=== PATIENT | female | born 1945 | race Caucasian/White ===

== ENCOUNTER 2016-11-08 15:35 | Emergency (ER) | payer MEDICARE ==
[2016-11-08] MEDS ORDERED: HYDROcodone/ACETAMIN 5-325 MG* 1 TAB PO ONE ×2 (16:10→17:46)
--- NOTE | 2016-11-08 16:51 | RAD ---
HISTORY: Trauma, low back pain COMPARISONS: None TECHNIQUE: Multiple contiguous axial CT scans were obtained of the lumbar spine without intravenous contrast, with coronal and sagittal multiplanar reformations. FINDINGS: SPINAL CANAL: Evaluation of the central canal is limited on CT technique; however, there is no obvious canalicular mass or epidural hemorrhage. ALIGNMENT: The alignment is normal. VERTEBRAL BODIES: There is diffuse osteopenia. There is multilevel bridging anterolateral marginal osteophyte formation. The vertebral bodies are preserved in height. JOINTS: There is diffuse facet osteoarthritic change most pronounced at L4-L5 and L5-S1 MUSCULATURE: Unremarkable INTERVERTEBRAL DISCS: There is diffuse loss of intervertebral disc height throughout the spine. AXIAL IMAGES: T11-T12: There is no osseous neural foraminal narrowing or central canal stenosis. T12-L1: There is no osseous neural foraminal narrowing or central canal stenosis. L1-L2: There is mild disc bulge with marginal osteophyte formation at the neural foramina bilaterally. There is moderate bilateral neural foraminal narrowing. There is a probable right lateral recess inferior disc extrusion measuring 0.4 cm in depth. There is mild narrowing of central canal. L2-L3: There is a broad-based disc bulge. There is bilateral facet hypertrophy. There is mild bilateral neural foraminal narrowing. There is mild narrowing of central canal. L3-L4: There is a broad-based disc bulge with ligamentous and facet hypertrophy. There is marginal osteophyte formation at the neural foramina bilaterally. There is moderate bilateral neural foraminal narrowing. There is moderate to severe narrowing of the central canal. L4-L5: There is a broad-based disc bulge with ligamentous and facet hypertrophy. There is marginal osteophyte formation at the neural foramina bilaterally. There is severe left and moderate right neural foraminal narrowing. There is severe narrowing of the central canal. L5-S1: There is bilateral facet hypertrophy. There is marginal osteophyte formation at the neural foramina bilaterally. There is mild bilateral neural foraminal narrowing. There is no significant central canal stenosis. SOFT TISSUES: There is atherosclerosis of the abdominal aorta. There is diverticulosis of the colon. OTHER: None IMPRESSION: 1. OSTEOPENIA. 2. DEGENERATIVE DISC DISEASE AND OSTEOARTHRITIS. 3. THERE IS A PROBABLE RIGHT-SIDED INFERIOR DISC EXTRUSION AT L1-L2. 4. THERE IS SEVERE NARROWING OF THE CENTRAL CANAL AT L4-L5 WITH MODERATE TO SEVERE NARROWING AT L3-L4 AND MILD NARROWING AT L2-L3 AND L1-L2. 5. THERE IS MULTILEVEL NEURAL FORAMINAL NARROWING DESCRIBED ABOVE. 6. ATHEROSCLEROSIS. 7. DIVERTICULOSIS.
[2016-11-08 17:45] VITALS: BP 139/90
--- NOTE | 2016-11-08 21:49 | ED ---
Chandler Mcdermott Matthew, scribed for Kunal Prado MD on 11/08/16 at 1559 . Back Pain - HPI Summary HPI Summary: A 71 y/o female presents to the ED with gradually worsening, constant lower back pain since 2 months ago. The pain is rated 11/10 and radiates into her legs. Associated symptoms include difficulty ambulating, numbness/tingling in the LE, and unsteady gait from the pain. She denies urinary symptoms and irregular bowel movements. Two and half months ago the patient fell face forward with no immediate pain or injury. Two weeks later, the patient began having the lower back pain and a shooting pain down both of her legs to the knees. The patient has fallen twice since then. She has a Hx of chronic lower back pain, which she states has been worsening. - History of Current Complaint Chief Complaint: EDBackInjuryPain Stated Complaint: PAIN LOWER BACK AND LEGS Time Seen by Provider: 11/08/16 15:50 Hx Obtained From: Patient Onset/Duration: Gradual Onset, Lasting Weeks, Still Present Onset/Duration: Started Weeks Ago, Traumatic, Still Present Timing: Constant Back Pain Location: Is Discrete @ - lower back pain Severity Initially: Moderate Severity Currently: Moderate Pain Intensity: 11 Pain Scale Used: 0-10 Numeric Aggravating Symptom(s): Movement, Walking Alleviating Symptom(s): Nothing Associated Signs And Symptoms: Positive: Numbness, Tingling - LE. Negative: Abdominal Pain, Bladder Incontinence, Bowel Incontinence - Allergies/Home Medications Allergies/Adverse Reactions: Allergies Allergy/AdvReac Type Severity Reaction Status Date / Time Codeine Allergy Itching Verified 11/08/16 16:04 [facility] Allergy See Comment Verified 11/08/16 16:04 PMH/Surg Hx/FS Hx/Imm Hx Cardiovascular History: Reports: Hx Hypertension Respiratory History: Reports: Hx Chronic Obstructive Pulmonary Disease (COPD) - Cancer History Cancer Type, Location and Year: Basal Cell - Surgical History Surgery Procedure, Year, and Place: [place] Tumor gioma, 2008 Infectious Disease History: Denies: Hx Clostridium Difficile, Hx Hepatitis, Hx Human Immunodeficiency Virus (HIV), Hx of Known/Suspected MRSA, Hx Shingles, Hx Tuberculosis, Hx Known/ Suspected VRE, Hx Known/Suspected VRSA, History Other Infectious Disease, Traveled Outside the [place] in Last 30 Days - Family History Known Family History: Positive: Hypertension - Social History Alcohol Use: None Substance Use Type: Reports: None Smoking Status (MU): Heavy Every Day Tobacco Smoker Type: Cigarettes Amount Used/How Often: 1 PPD Length of Time of Smoking/Using Tobacco: 56 Years Have You Smoked in the Last Year: Yes Review of Systems Constitutional: Negative Eyes: Negative ENT: Negative Cardiovascular: Negative Respiratory: Negative Gastrointestinal: Negative Genitourinary: Negative Positive: no symptoms reported Positive: Myalgia - lower back pain Skin: Negative Neurological: Other - Difficulty ambulating and unsteady gait from pain Positive: Numbness - Bilateral LE Psychological: Normal All Other Systems Reviewed And Are Negative: Yes Physical Exam Triage Information Reviewed: Yes Vital Signs On Initial Exam: Initial Vitals Temp Pulse Resp BP Pulse Ox 98.4 F 98 16 210/68 98 11/08/16 15:41 11/08/16 15:41 11/08/16 15:41 11/08/16 15:41 11/08/16 15:41 Vital Signs Reviewed: Yes Appearance: Positive: Well-Appearing, No Pain Distress Skin: Positive: Warm, Skin Color Reflects Adequate Perfusion, Dry Head/Face: Positive: Normal Head/Face Inspection Eyes: Positive: Normal ENT: Positive: Normal ENT inspection Neck: Positive: Supple, Nontender Respiratory/Lung Sounds: Positive: Clear to Auscultation, Breath Sounds Present Cardiovascular: Positive: RRR Abdomen Description: Positive: Nontender, Soft Bowel Sounds: Positive: Present Musculoskeletal: Positive: Other - Negative straight leg raise; hyper reflexive in her bilateral knees Neurological: Positive: Normal, Sensory/Motor Intact, Alert, Oriented to Person Place, Time Psychiatric: Positive: Normal, Affect/Mood Appropriate Diagnostics - Vital Signs Vital Signs Temp Pulse Resp BP Pulse Ox 11/08/16 15:41 98.4 F 98 16 210/68 98 - Laboratory Lab Statement: Any lab studies that have been ordered have been reviewed, and results considered in the medical decision making process. - CT Lumbar Spine CT CT Interpretation: Positive (See Comments) - IMPRESSION: 1. OSTEOPENIA. 2. DEGENERATIVE DISC DISEASE AND OSTEOARTHRITIS. 3. THERE IS A PROBABLE RIGHT- SIDED INFERIOR DISC EXTRUSION AT L1-L2. 4. THERE IS SEVERE NARROWING OF THE CENTRAL CANAL AT L4-L5 WITH MODERATE TO SEVERE NARROWING AT L3-L4 AND MILD NARROWING AT L2-L3 AND L1-L2. 5. THERE IS MULTILEVEL NEURAL FORAMINAL NARROWING DESCRIBED ABOVE. 6. ATHEROSCLEROSIS. 7. DIVERTICULOSIS. CT Interpretation Completed By: Radiologist Back Pain Course/Dx - Course Assessment/Plan: A 71 y/o female presents to the ED with gradually worsening, constant lower back pain. Lumbar Spine CT shows there is severe narrowing of the central canal at l4-l5 with moderate to severe narrowing at l3-l4 and mild narrowing at l2-l3 and l1-l2. She improved significantly with one PO dose of Tatamy here and will be discharged home on Tatamy and follow-up with her PCP. - Diagnoses Provider Diagnoses: LUMBAR SPINAL STENOSIS Discharge - Discharge Plan Condition: Stable Disposition: HOME Prescriptions: HYDROcodone/ACETAMIN 5-325 MG* [Tatamy 5-325 TAB*] 1 tab PO Q6H PRN #20 tab MDD 4 PRN Reason: Pain Patient Education Materials: Hydrocodone/Acetaminophen (By mouth), Lumbar Spinal Stenosis (ED) Referrals: Juancho Gauthier MD [Primary Care Provider] - 2 Days Additional Instructions: Please follow-up with your primary care physician in two days. The documentation as recorded by the Chandler paez Matthew accurately reflects the service I personally performed and the decisions made by me, Kunal Prado MD.
== END 2016-11-08 18:20 | disposition home or self-care (01) ==
LOC: ED 15:35
DX: M48.06 Spinal stenosis, lumbar region (principal); I10 Essential (primary) hypertension; J44.9 Chronic obstructive pulmonary disease, unspecified; Z88.5 Allergy status to narcotic agent; F17.210 Nicotine dependence, cigarettes, uncomplicated
CPT/HCPCS: 72131

== ENCOUNTER 2016-12-11 12:59 | Emergency (ER) | payer MEDICARE ==
[2016-12-11 13:18] VITALS: BP 151/64
[2016-12-11] MEDS ORDERED: Albuterol/Ipratropium NEB.SOL* Albuterol 2.5 MG/Ipratropium 0.5 MG 3 ML INH ONE (13:26)
[2016-12-11] MEDS ORDERED: Acetaminophen TAB* 325 MG PO ONE (13:28)
--- NOTE | 2016-12-11 13:29 | UC ---
Throat Pain/Nasal [place] HPI - HPI Summary HPI Summary: here with daughter patient complaint of nasal congestion and cough that started 12/08/16 cough has worsened and she started to hear wheezing in her chest since 12/09/16 yesterday started to feel that is harder to breath intermittent headache for the last 2 days slight nausea and dizziness intermittent for the last day newly dx with COPD but doesn't have albuterol inhaler denies fever and chills denies chest pain , diaphoresis, arm pain - History of Current Complaint Chief Complaint: UCRespiratory Stated Complaint: CONGESTION Time Seen by Provider: 12/11/16 13:22 Hx Obtained From: Patient, Family/Classified Copy Control Clerk - Allergies/Home Medications Allergies/Adverse Reactions: Allergies Allergy/AdvReac Type Severity Reaction Status Date / Time Codeine Allergy Itching Verified 12/11/16 13:07 Levetiracetam [From [facility]] Allergy See Comment Verified 12/11/16 13:07 ADHESIVE BANDAIDS Allergy Intermediate Rash Uncoded 12/11/16 13:07 Home Medications: Home Medications Aspirin [Aspirin Adult Low Strengt] 162 mg PO DAILY 12/11/16 [History Confirmed 12/11/16] oxyCODONE/Acetamin 5/325 MG* [Percocet 5/325 TAB*] 1 tab PO Q6H PRN 12/11/16 [ History Confirmed 12/11/16] PMH/Surg Hx/FS Hx/Imm Hx Previously Healthy: No - URI Cardiovascular History Of: Reports: Hypertension Respiratory History Of: Reports: COPD - Surgical History Surgical History: Yes Surgery Procedure, Year, and Place: [place] Tumor Humangioma, 2008. LEFT BREAST BX- NOV 26, 2016. NERVE BLOCK BACK PAIN - Family History Known Family History: Positive: Hypertension Negative: Cardiac Disease, Diabetes - Social History Occupation: Retired Lives: With Family Alcohol Use: None Substance Use Type: None Smoking Status (MU): Heavy Every Day Tobacco Smoker Type: Cigarettes Amount Used/How Often: 1/2 PPD Length of Time of Smoking/Using Tobacco: 56 Years Have You Smoked in the Last Year: Yes Household Exposure Type: Cigarettes Cessation Counseling: Patient Advised to Stop - Immunization History Most Recent Influenza Vaccination: JUL 2016 Review of Systems Constitutional: Chills, Fatigue Skin: Negative Eyes: Negative ENT: Sore Throat, Nasal Discharge Respiratory: Cough Cardiovascular: Negative Gastrointestinal: Negative Genitourinary: Negative Motor: Negative Neurovascular: Negative Musculoskeletal: Negative Neurological: Negative Psychological: Negative All Other Systems Reviewed And Are Negative: Yes Physical Exam Triage Information Reviewed: Yes Appearance: No Pain Distress, Well-Nourished Vital Signs: Initial Vital Signs Temp 98.3 F 12/11/16 13:10 Pulse 93 12/11/16 13:10 Resp 24 12/11/16 13:10 BP 151/64 12/11/16 13:10 Pulse Ox 95 12/11/16 13:10 Vital Signs Reviewed: Yes Eyes: Positive: Conjunctiva Clear ENT: Positive: Pharyngeal erythema, Nasal congestion, TMs normal. Negative: Tonsillar swelling, Tonsillar exudate Neck: Positive: No Lymphadenopathy Respiratory: Positive: Wheezing - limited air movement throughout all lung [place] Cardiovascular: Positive: RRR, No Murmur, Pulses Normal Abdomen Description: Positive: Nontender, No Organomegaly, Soft Bowel Sounds: Positive: Present Musculoskeletal: Positive: No Edema Neurological: Positive: Alert Psychological Exam: Normal Skin Exam: Normal Re-Evaluation - Re-Evaluation First Eval Change: Improved - more air movement throughout, slightly less wheezing Throat Pain/Nasal Course/Dx - Course Assessment/Plan: exam completed. newly dx with COPD. exacerbation following viral illness. duoneb treatment with excellent effect- more air movement and less wheezing. EKG -NSR no acute changes or ectopy, chest x-ray COPD negative for pneumonia - Differential Dx/Diagnosis Differential Diagnosis/HQI/PQRI: Pharyngitis, URI, Other - COPD excerbation, AK , CHF Provider Diagnoses: COPD excerbation Discharge - Discharge Plan Condition: Stable Disposition: HOME Prescriptions: Albuterol HFA INHALER* [Ventolin HFA Inhaler*] 2 puff INH Q4H PRN #1 mdi PRN Reason: Wheezing Clarithromycin TAB* [Biaxin TAB*] 500 mg PO BID #20 tab Spacer/Aerosol-Holding Chamber [Aerochamber Mv] 1 mis XX Q4HR #1 mis predniSONE TAB* [Deltasone TAB*] 50 mg PO DAILY #5 tab Patient Education Materials: COPD (Chronic Obstructive Pulmonary Disease) (ED) Referrals: Juancho Gauthier MD [Primary Care Provider] - Additional Instructions: Please take antibiotic and prednisone as directed Use your albuterol inhaler every 4-6 hours when needed for wheezing, shortness of breath or uncontrolled coughing. Increase fluids and rest Take acetaminophen or ibuprofen for fever or pain Please review your discharge instructions. If your symptoms do not improve please call your primary care provider or return to urgent care.
[2016-12-11] MEDS ORDERED: methylPREDNISolone ACETATE 40* 40 MG/ML 1 ML VIAL IM ONE (13:40)
[2016-12-11] MEDS ORDERED: methylPREDNISolone 125 MG* 2 ML VIAL IM ONE (14:04)
--- NOTE | 2016-12-11 14:16 | RAD ---
HISTORY: Shortness of breath COMPARISONS: None VIEWS: 2: Frontal dual-energy and lateral views of the chest. FINDINGS: CARDIOMEDIASTINAL SILHOUETTE: The cardiomediastinal silhouette is normal. LOIS: The lois are normal. PLEURA: The costophrenic angles are sharp. No pleural abnormalities are noted. LUNG PARENCHYMA: The lungs are clear. ABDOMEN: The upper abdomen is clear. There is no subphrenic gas. BONES AND SOFT TISSUES: Degenerative changes are noted along the spine. OTHER: None. IMPRESSION: HYPERINFLATION, CONSISTENT WITH COPD. NO ACTIVE CARDIOPULMONARY DISEASE.
[2016-12-11] MEDS ORDERED: Atenolol TAB* 25 MG PO SCH (21:00)
== END 2016-12-11 14:40 | disposition home or self-care (01) ==
LOC: UCCORT 12:59
DX: J44.1 Chronic obstructive pulmonary disease with (acute) exacerbation (principal); F17.210 Nicotine dependence, cigarettes, uncomplicated; Z79.82 Long term (current) use of aspirin; Z88.5 Allergy status to narcotic agent; Z88.8 Allergy status to other drugs, medicaments and biological substances
CPT/HCPCS: 71020; 93005; 96372; 99212; A9270-GY; G0463; J2930

== ENCOUNTER 2018-04-02 13:09 | Emergency (ER) | payer MEDICARE ==
--- NOTE | 2018-04-02 13:45 | UC ---
Respiratory Complaint HPI - HPI Summary HPI Summary: 72 year old female with COPD present with cough . states nausea, productive cough, diarrhea x 5 days. Also states some SOB of at times, history of COPD and increased wheeze and productive cough and quit smoking 5 days ago . no CP. [ End ] - History of Current Complaint Chief Complaint: UCRespiratory Stated Complaint: TROUBLE BREATHING Time Seen by Provider: 04/02/18 13:40 Hx Obtained From: Patient Onset/Duration: Gradual Onset Timing: Constant Severity Initially: Mild Severity Currently: Moderate Pain Intensity: 0 Character: Cough: Productive Associated Signs And Symptoms: Positive: Wheezing, URI, Nasal Congestion - Risk Factors Tuberculosis Risk Factors: Smoking - Allergies/Home Medications Allergies/Adverse Reactions: Allergies Allergy/AdvReac Type Severity Reaction Status Date / Time levetiracetam [From [facility]] Allergy See Comment Verified 04/02/18 13:14 ADHESIVE BANDAIDS Allergy Intermediate Rash Uncoded 12/11/16 13:07 Home Medications: Home Medications Metoprolol Tartrate TAB* [Lopressor TAB*] 25 mg PO DAILY 04/02/18 [History Confirmed 04/02/18] PMH/Surg Hx/FS Hx/Imm Hx Previously Healthy: Yes Endocrine History: Dyslipidemia Cardiovascular History: Hypertension Respiratory History: COPD - Surgical History Surgical History: Yes Surgery Procedure, Year, and Place: [place] Tumor Humangioma, 2009. LEFT BREAST BX- NOV 26, 2016. NERVE BLOCK BACK PAIN - Family History Known Family History: Positive: Hypertension Negative: Cardiac Disease, Diabetes - Social History Occupation: Retired Alcohol Use: None Substance Use Type: None Smoking Status (MU): Heavy Every Day Tobacco Smoker Type: Cigarettes Amount Used/How Often: 1/2 PPD Length of Time of Smoking/Using Tobacco: 56 Years Have You Smoked in the Last Year: Yes Household Exposure Type: Cigarettes Cessation Counseling: Patient Advised to Stop - per pt quit 5 days ago - Immunization History Most Recent Influenza Vaccination: JUL 2016 Review of Systems Constitutional: Fever, Fatigue ENT: Nasal Discharge, Sinus Congestion, Sinus Pain/Tenderness Respiratory: Shortness Of Breath, Cough Is Patient Immunocompromised?: No All Other Systems Reviewed And Are Negative: Yes Physical Exam Triage Information Reviewed: Yes Appearance: Well-Appearing, No Pain Distress, Well-Nourished Vital Signs: Initial Vital Signs Temp 98.8 F 04/02/18 13:12 Pulse 115 04/02/18 13:12 Resp 24 04/02/18 13:12 BP 134/64 04/02/18 13:12 Pulse Ox 95 04/02/18 13:12 Vital Signs Reviewed: Yes Eye Exam: Normal ENT Exam: Normal Dental Exam: Normal Neck exam: Normal Neck: Positive: 1 Respiratory Exam: Normal Respiratory: Positive: Decreased breath sounds - RLL, Wheezing - Right lung Cardiovascular Exam: Normal Musculoskeletal Exam: Normal Neurological Exam: Normal Psychological Exam: Normal Skin Exam: Normal UC Diagnostic Evaluation - Laboratory O2 Sat by Pulse Oximetry: 95 Respiratory Course/Dx - Course Course Of Treatment: CXR read by rads show no acute concerns. Neb helped pt she stated. Oxygen 93-95% -- treat for COPD exac and if Sx worsen then to go to ED - Differential Dx/Diagnosis Differential Diagnosis/HQI/PQRI: Bronchitis, Exacerbation Of COPD, Lower Resp Infection, Sinusitis Provider Diagnoses: COPD exac Discharge - Sign-Out/Discharge Documenting (check all that apply): Discharge/Admit/Transfer - Discharge Plan Condition: Good Disposition: HOME Prescriptions: Doxycycline Hyclate 100 mg PO BID #20 tablet methylPREDNISolone [Medrol Dosepak 4 MG*] 0 mg PO .SEE EVA INSTRUCTION #1 tab Patient Education Materials: COPD (Chronic Obstructive Pulmonary Disease) (ED) Referrals: Jenn Ruff MD [Medical Doctor] - 3 Days Additional Instructions: With your cough and history of COPD we are treating you for COPD exacerbation. Please follow up with your PCP for this in the future - Billing Disposition and Condition Condition: GOOD Disposition: HOME
[2018-04-02] MEDS ORDERED: Albuterol/Ipratropium NEB.SOL* Albuterol 2.5 MG/Ipratropium 0.5 MG 3 ML INH ONE (13:50)
--- NOTE | 2018-04-02 14:12 | RAD ---
INDICATION: Cough COMPARISON: September 14, 2017 TECHNIQUE: PA and lateral dual-energy views were obtained. FINDINGS: Bones/Soft Tissues: There are no acute bony findings. Cardiomediastinal: The cardiomediastinal silhouette is normal. Lungs: There are no infiltrates. Pleura: There are no pleural effusions. Other: None IMPRESSION: NO ACTIVE DISEASE.
[2018-04-02 14:31] VITALS: BP 127/53
== END 2018-04-02 14:51 | disposition home or self-care (01) ==
LOC: UCCORT 13:09
DX: J44.1 Chronic obstructive pulmonary disease with (acute) exacerbation (principal); F17.210 Nicotine dependence, cigarettes, uncomplicated; Z88.8 Allergy status to other drugs, medicaments and biological substances
CPT/HCPCS: 71046; 99212; A9270-GY; G0463

== ENCOUNTER 2018-05-14 08:20 | Emergency (ER) | payer MEDICARE ==
[2018-05-14 08:40] VITALS: BP 163/80
--- NOTE | 2018-05-14 08:44 | UC ---
General HPI - HPI Summary HPI Summary: Pleasant 72 yo lady, c/o lower abd pain, bloating, nausea, vomitting and diarrhea on/off x approx 3 weeks. No melena / brbpr. Denies urinary sx. No recent cough / uri (recently quit smoking in March 2018). A couple nights ago pain woke her up in the middle of the night, better now (waxes and wanes) but does not completely resolve. No recent sx, although hx gbsx, appx, btl. No direct pain pain, does have hx back sx, not recent. - History of Current Complaint Chief Complaint: UCGI Stated Complaint: NAUSEA/DIARRHEA Time Seen by Provider: 05/14/18 08:43 Hx Obtained From: Patient Onset/Duration: Lasting Days Pain Intensity: 6 - Allergy/Home Medications Allergies/Adverse Reactions: Allergies Allergy/AdvReac Type Severity Reaction Status Date / Time levetiracetam [From [facility]] Allergy See Comment Verified 05/14/18 08:30 ADHESIVE BANDAIDS Allergy Intermediate Rash Uncoded 05/14/18 08:30 PMH/Surg Hx/FS Hx/Imm Hx Previously Healthy: Yes - Surgical History Surgical History: Yes Surgery Procedure, Year, and Place: [place] Tumor Humangioma, 2009. LEFT BREAST BX- NOV 26, 2016. NERVE BLOCK BACK PAIN - Family History Known Family History: Positive: Hypertension Negative: Cardiac Disease, Diabetes - Social History Alcohol Use: None Substance Use Type: None, Other - quit tobacco smoke 03/2018 Smoking Status (MU): Former Smoker Type: Cigarettes Amount Used/How Often: 1/2 PPD Length of Time of Smoking/Using Tobacco: 56 Years Have You Smoked in the Last Year: Yes When Did the Patient Quit Smoking/Using Tobacco: 03/02/18 Household Exposure Type: Cigarettes - Immunization History Most Recent Influenza Vaccination: JUL 2016 Review of Systems Constitutional: Fatigue Skin: Negative Eyes: Negative ENT: Negative Respiratory: Negative Cardiovascular: Negative Gastrointestinal: Abdominal Pain, Vomiting, Diarrhea Genitourinary: Negative Motor: Negative Neurovascular: Negative Musculoskeletal: Negative Neurological: Negative Psychological: Negative Is Patient Immunocompromised?: No All Other Systems Reviewed And Are Negative: Yes Physical Exam - Summary Physical Exam Summary: BP noted Triage Information Reviewed: Yes Appearance: Well-Nourished - sitting up, looks uncomfortable but NAD. Nontoxic appearance. Vital Signs: Initial Vital Signs Temp 97.5 F 05/14/18 08:31 Pulse 85 05/14/18 08:31 Resp 16 05/14/18 08:31 BP 163/80 05/14/18 08:31 Pulse Ox 98 05/14/18 08:31 Eye Exam: Normal ENT Exam: Normal Neck exam: Normal Neck: Positive: Supple Respiratory: Positive: Chest non-tender, Lungs clear, Normal breath sounds, No respiratory distress, No accessory muscle use Cardiovascular: Positive: RRR, No Murmur, Pulses Normal, Brisk Capillary Refill Abdominal Exam: Other - + BS, soft. Tender LLQ. No cvat. Musculoskeletal Exam: Normal - gait steady Neurological Exam: Normal - grossly nonfocal Psychological Exam: Normal - conversing easily and appropriately Skin Exam: Normal - no visible or reported rash Course/Dx - Course Course Of Treatment: Recommend transfer to the ED for further evaluation and treatment. Ms. Daigle carefully considered this, agrees to go to the ED, she is calling her daughter (her ride), and will let us know if [facility] [place] or [place] ED. . Reviewed urine dip, nonspecific unremarkable. Questions as posed answered to the best of my ability. - Differential Dx - Multi-Symptom Provider Diagnoses: Acute abdominal pain Discharge - Sign-Out/Discharge Documenting (check all that apply): Patient Departure - Discharge Plan Condition: Guarded Disposition: HOME-RECOMMEND TO ED Patient Education Materials: Acute Abdominal Pain (ED) Referrals: Ganesh Choi DO [Primary Care Provider] - Additional Instructions: BP 163/80 today - elevated, please have this rechecked by your doctor in the next 2 weeks, or sooner. Go directly to the Emergency Department. Call 911 if problems en route. - Billing Disposition and Condition Condition: GUARDED Disposition: Home-Recommend to ED
== END 2018-05-14 09:11 | disposition home health service (06) ==
LOC: UCCORT 08:20
DX: R10.32 Left lower quadrant pain (principal); Z88.8 Allergy status to other drugs, medicaments and biological substances; Z87.891 Personal history of nicotine dependence
CPT/HCPCS: 81003; 99212; G0463

== ENCOUNTER 2018-05-14 10:38 | Emergency (ER) | payer MEDICARE ==
--- NOTE | 2018-05-14 11:15 | ED ---
Abdominal Pain/Female - HPI Summary HPI Summary: Patient is a 72-year-old female who presents emergency department for diffuse abdominal pain 4 weeks. Patient presents today because pain has become more frequent. She describes pain as being to her lower abdomen and states she's been feeling more loaded. Describes pain as a pressure sensation. Associated symptoms of nausea, occasional vomiting and diarrhea. Denies urinary symptoms, fever, chills, chest pain, shortness of breath, leg edema. Past medical history of brain tumor, COPD, HTN. Last colonoscopy was about 10 years ago. Symptoms are moderate in severity. No current modifying. History of cholecystectomy, appendectomy, hysterectomy. - History of Current Complaint Chief Complaint: EDAbdPain Stated Complaint: ABD PAIN-SENT FROM [facility] Time Seen by Provider: 05/14/18 10:56 Hx Obtained From: Patient, Family/Timber Hewer Pain Intensity: 6 Allergies/Adverse Reactions: Allergies Allergy/AdvReac Type Severity Reaction Status Date / Time levetiracetam [From [facility]] Allergy See Comment Verified 05/14/18 10:48 ADHESIVE BANDAIDS Allergy Intermediate Rash Uncoded 05/14/18 10:48 PMH/Surg Hx/FS Hx/Imm Hx Previously Healthy: Yes Cardiovascular History: Reports: Hx Hypertension Respiratory History: Reports: Hx Chronic Obstructive Pulmonary Disease (COPD) - Cancer History Cancer Type, Location and Year: Basal Cell - Surgical History Surgery Procedure, Year, and Place: [place] Tumor Humangioma, 2009. LEFT BREAST BX- NOV 26, 2016. NERVE BLOCK BACK PAIN Infectious Disease History: No Infectious Disease History: Denies: Hx Clostridium Difficile, Hx Hepatitis, Hx Human Immunodeficiency Virus (HIV), Hx of Known/Suspected MRSA, Hx Shingles, Hx Tuberculosis, Hx Known/ Suspected VRE, Hx Known/Suspected VRSA, History Other Infectious Disease, Traveled Outside the [place] in Last 30 Days - Family History Known Family History: Positive: Hypertension Negative: Cardiac Disease, Diabetes - Social History Occupation: Retired Lives: Alone Alcohol Use: Occasionally Substance Use Type: Reports: None Smoking Status (MU): Former Smoker Type: Cigarettes Amount Used/How Often: 1/2 PPD Length of Time of Smoking/Using Tobacco: 56 Years Have You Smoked in the Last Year: Yes Review of Systems Constitutional: Negative Negative: Fever, Chills Eyes: Negative ENT: Negative Cardiovascular: Negative Negative: Palpitations, Chest Pain Respiratory: Negative Negative: Shortness Of Breath, Cough Positive: Abdominal Pain, Vomiting, Diarrhea, Nausea Genitourinary: Negative Neurological: Negative All Other Systems Reviewed And Are Negative: Yes Physical Exam Triage Information Reviewed: Yes Vital Signs On Initial Exam: Initial Vitals Temp Pulse Resp BP Pulse Ox 96.8 F 93 16 168/72 98 05/14/18 10:42 05/14/18 10:42 05/14/18 10:42 05/14/18 10:42 05/14/18 10:42 Vital Signs Reviewed: Yes Appearance: Positive: Well-Appearing - Patient sitting up in bed in no acute distress. Pleasant. Daughter present. Skin: Positive: Warm, Dry Head/Face: Positive: Normal Head/Face Inspection Eyes: Positive: Normal Neck: Positive: Supple Respiratory/Lung Sounds: Positive: Clear to Auscultation, Breath Sounds Present Cardiovascular: Positive: Normal, RRR Abdomen Description: Positive: Other: - Mildly distended. Abdomen is diffusely tender on light palpation. No rebound tenderness or guarding. No rigidity. No CVA tenderness bilaterally. Neurological: Positive: Normal, CN Intact II-III Psychiatric: Positive: Affect/Mood Appropriate Diagnostics - Vital Signs Vital Signs Temp Pulse Resp BP Pulse Ox 05/14/18 11:00 101 98 05/14/18 10:59 102 182/91 97 05/14/18 10:58 104 97 05/14/18 10:42 96.8 F 93 16 168/72 98 - Laboratory Result Diagrams: 05/14/18 11:25 05/14/18 11:25 Lab Statement: Any lab studies that have been ordered have been reviewed, and results considered in the medical decision making process. Abdominal Pain Fem Course/Dx - Course Course Of Treatment: Presenting for ongoing worsening diffuse abdominal pain. Will obtain labs and CT scan further evaluation. Patient was seen at urgent care just prior to arrival and had a negative urinalysis. Patient's pain is currently minimal and she declines pain medication or antiemetics at this time. Labs are unremarkable. CT scan shows increased stool without acute findings, reading per radiology. On re-exam pt. is resting comfortably. Results discussed with pt. and family. Advised pt. she is going to need to f.u with her PCP closely for further testing and possible referral for colonoscopy. Recommend miralax for constipation. To return to ER if sxs change or worsen. Pt. understands and agrees with plan. - Diagnoses Differential Diagnosis: Positive: Bowel Obstruction, Constipation, Diverticulitis, Irritable Bowel Syndrome, Pancreatitis, Renal Colic, Urinary Tract Infection Provider Diagnoses: Constipation, Abdominal pain, Bloating Discharge - Sign-Out/Discharge Documenting (check all that apply): Patient Departure - Discharge Plan Condition: Good Disposition: HOME Patient Education Materials: Gas and Bloating (ED), Abdominal Pain (ED) Referrals: Ganesh Choi DO [Primary Care Provider] - Additional Instructions: Call your PCP today to schedule a close follow up appointment for further testing and evaluation of your abdominal pain Recommending taking an over the counter stool softener or laxative such as MiraLAX Increase fluids and fiber in diet Return to ER for increased pain, fever, vomiting, or if concerned - Billing Disposition and Condition Condition: GOOD Disposition: Home
[2018-05-14 11:44] LABS: ABS Basophils 0.1 10^3/ul (0-0.2); ABS Eosinophils 0 10^3/ul (0-0.6); ABS Lymphocytes 2.7 10^3/ul (1.0-4.8); ABS Monocytes 0.7 10^3/ul (0-0.8); ABS Neutrophils 5.3 10^3/ul (1.5-7.7); ABS Nucleated RBC 0 10^3/ul; Eosinophil % 0.5 % (0-6); Hematocrit 39 % (35-47); Hemoglobin 12.9 g/dl (12.0-16.0); Lymphocyte % 30.9 % (25-47); Mean Corpuscular HGB Conc 33 g/dl (31-36); Mean Corpuscular Hemoglobin 31 pg (27-31); Mean Corpuscular Volume 93 fL (80-97); Mean Platelet Volume 8.8 um3 (7.4-10.4); Nucleated Red Blood Cells % 0; Platelet Count 262 10^3/ul (150-450); Red Blood Count 4.14 10^6/ul (4.00-5.40); Red Cell Distribution Width 15 % (10.5-15); White Blood Count 8.9 10^3/ul (3.5-10.8)
[2018-05-14 12:06] LABS: EGFR Non-African American 73.3 (>60)
[2018-05-14] MEDS ORDERED: Iohexol 300* (CONTRAST) 10 ML SDV IV ONE (12:11)
--- NOTE | 2018-05-14 13:46 | RAD ---
Indication: Abdominal pain. Contrast: Administered 97.3 ml of OMNIPAQUE 300 mg/ml CT of the abdomen and pelvis was performed without oral or IV contrast administration. Coronal and sagittal reconstructed images were obtained. Lung bases demonstrate no pleural fluid, nodules or masses. Heart is of normal size without evidence of pericardial effusion. The liver is normal in size. It is diffusely decreased in density consistent with hepatic steatosis. No focal lesions or intrahepatic duct dilatation is noted. The patient is status post cholecystectomy. Common duct is not dilated. Pancreas demonstrates no mass effect or ductal dilatation. The spleen is normal in size. No adrenal lesions are noted. The kidneys demonstrate symmetric nephrograms with no hydronephrosis of either kidney. Calcifications are noted along the gonadal vessels bilaterally. No hydronephrosis or hydroureter is noted. Atherosclerotic aorta is noted. No retroperitoneal adenopathy is noted. CT of the pelvis demonstrates no pelvic adenopathy. Urinary bladder is unremarkable. Patient is status post hysterectomy. No dilated loops of bowel are noted. The colon is filled with stool. No definite evidence of bowel obstruction is noted. The bony structures demonstrates degenerative changes of the lumbar spine. IMPRESSION: No definite obstructive uropathy is noted. No abnormal masses or fluid collections are noted. Hepatic steatosis is noted.
[2018-05-14 14:32] VITALS: BP 159/98
== END 2018-05-14 14:31 | disposition home or self-care (01) ==
LOC: ED 10:38
DX: K59.00 Constipation, unspecified (principal); R10.9 Unspecified abdominal pain; R14.0 Abdominal distension (gaseous); Z90.49 Acquired absence of other specified parts of digestive tract; Z90.710 Acquired absence of both cervix and uterus; Z87.891 Personal history of nicotine dependence; Z88.8 Allergy status to other drugs, medicaments and biological substances; R10.32 Left lower quadrant pain
CPT/HCPCS: 36415; 74177; 80053; 83605; 83690; 85025; 99283; Q9967

== ENCOUNTER 2018-12-20 17:37 | Emergency (ER) | payer MEDICARE ==
--- NOTE | 2018-12-20 19:40 | UC ---
General HPI - HPI Summary HPI Summary: pt states she turned and got a sudden sharp pain in her L hip that radiates toward her thigh this am. pain with weight bearing. - History of Current Complaint Chief Complaint: UCBackPain Stated Complaint: LEFT HIP PAIN-GRAVITATING DOWN LEG Time Seen by Provider: 12/20/18 19:33 Hx Obtained From: Patient, Family/Machine Burrer Onset/Duration: Sudden Onset Timing: Constant Pain Intensity: 10 Associated Signs & Symptoms: Negative: Edema - Allergy/Home Medications Allergies/Adverse Reactions: Allergies Allergy/AdvReac Type Severity Reaction Status Date / Time levetiracetam [From [facility]] AdvReac See Comment Verified 12/20/18 19:09 ADHESIVE BANDAIDS Allergy Intermediate Rash Uncoded 12/20/18 19:09 Home Medications: Home Medications Albuterol HFA INHALER* [Ventolin HFA Inhaler*] 2 puff INH Q6H PRN 12/20/18 [ History Confirmed 12/20/18] Aspirin/Acetaminophen/Caffeine [Excedrin Extra Strength Caplet] 3 each PO ONCE PRN 12/20/18 [History Confirmed 12/20/18] Atorvastatin* [Lipitor*] 10 mg PO DAILY 12/20/18 [History Confirmed 12/20/18] Ibuprofen TAB* [Advil TAB*] 800 mg PO Q6H PRN 12/20/18 [History Confirmed ] PMH/Surg Hx/FS Hx/Imm Hx Endocrine History: Dyslipidemia Cardiovascular History: Hypertension - Surgical History Surgical History: Yes Surgery Procedure, Year, and Place: [place] Tumor Humangioma, 2009. LEFT BREAST BX- NOV 26, 2016. NERVE BLOCK BACK PAIN - Family History Known Family History: Positive: Hypertension Negative: Cardiac Disease, Diabetes - Social History Alcohol Use: Occasionally Substance Use Type: None Smoking Status (MU): Heavy Every Day Tobacco Smoker Type: Cigarettes Amount Used/How Often: 1/2 PPD Length of Time of Smoking/Using Tobacco: 56 Years Have You Smoked in the Last Year: Yes When Did the Patient Quit Smoking/Using Tobacco: 03/02/18 Household Exposure Type: Cigarettes - Immunization History Most Recent Influenza Vaccination: JUL 2016 Review of Systems All Other Systems Reviewed And Are Negative: Yes Constitutional: Positive: Negative Skin: Positive: Negative Eyes: Positive: Negative ENT: Positive: Negative Respiratory: Positive: Negative Cardiovascular: Positive: Negative Gastrointestinal: Positive: Negative Genitourinary: Positive: Negative Motor: Positive: Negative Neurovascular: Positive: Negative Neurological: Positive: Negative Psychological: Positive: Negative Physical Exam Triage Information Reviewed: Yes Appearance: Well-Appearing Vital Signs: Initial Vital Signs Temp 98.1 F 12/20/18 19:01 Pulse 97 12/20/18 19:01 Resp 15 12/20/18 19:01 BP 144/56 12/20/18 19:01 Pulse Ox 97 12/20/18 19:01 Vital Signs Reviewed: Yes Eyes: Positive: Conjunctiva Clear ENT: Positive: Normal ENT inspection Neck: Positive: Supple Respiratory: Positive: Lungs clear, Normal breath sounds Cardiovascular: Positive: RRR, No Murmur Abdomen Description: Positive: Nontender, No Organomegaly, Soft Bowel Sounds: Positive: Present Musculoskeletal: Positive: Other: - Pelvic girdle/hips: no gross deformity, swelling or discoloration. tender over L lateral/posterior hip/buttock. rom intact both hips but worsens L hip pain as does weight bearing on LLE. BLE's have gross s/v/m function. Sciatic notches are non tender. Neurological: Positive: Alert Psychological: Positive: Normal Response To Family, Age Appropriate Behavior Skin Exam: Normal Skin: Negative: Rashes Diagnostics - Radiology No standard instances Radiology Interpretation Completed By: ED Physician - wet read pelvis/L hip = NAD, Radiologist - ct pelvis:no fx or dislocation Course/Dx - Course Course Of Treatment: hx and PE d/w Dr Phelan who examined injured area and suggested CT pelvis. - Differential Dx - Multi-Symptom Differential Diagnoses: Other - no fx's or dislocations on xray/CT - Diagnoses Provider Diagnosis: Strain of muscle of hip, Strain of left buttock Discharge - Sign-Out/Discharge Documenting (check all that apply): Patient Departure All imaging exams completed and their final reports reviewed: No - Discharge Plan Condition: Stable Disposition: HOME Patient Education Materials: Muscle Strain (DC) Referrals: Ganesh Choi DO [Primary Care Provider] - 2 Days Additional Instructions: USE YOUR WALKER AT ALL TIMES - Billing Disposition and Condition Condition: STABLE Disposition: Home
[2018-12-20] MEDS ORDERED: HYDROcodone/ACETAMIN 5-325 MG* 1 TAB PO ONE ×2 (21:26→22:25)
[2018-12-20 22:33] VITALS: BP 150/62
--- NOTE | 2018-12-21 08:00 | UC ---
- Progress Note Progress Note: left hip xray : IMPRESSION: 1. NO EVIDENCE OF FRACTURE. 2. MILD TO MODERATE BILATERAL OSTEOARTHRITIC CHANGE. Course/Dx - Diagnoses Provider Diagnoses: Strain of muscle of hip, Strain of left buttock Discharge - Sign-Out/Discharge Documenting (check all that apply): Patient Departure All imaging exams completed and their final reports reviewed: Yes - Discharge Plan Condition: Stable Disposition: HOME Patient Education Materials: Muscle Strain (DC) Referrals: Ganesh Choi DO [Primary Care Provider] - 2 Days Additional Instructions: USE YOUR WALKER AT ALL TIMES - Billing Disposition and Condition Condition: STABLE Disposition: Home
== END 2018-12-20 22:33 | disposition home or self-care (01) ==
LOC: UCCORT 17:37
DX: S76.012A Strain of muscle, fascia and tendon of left hip, initial encounter (principal); S39.012A Strain of muscle, fascia and tendon of lower back, initial encounter; F17.210 Nicotine dependence, cigarettes, uncomplicated; I10 Essential (primary) hypertension; Z91.09 Other allergy status, other than to drugs and biological substances; Z88.8 Allergy status to other drugs, medicaments and biological substances; X58.XXXA Exposure to other specified factors, initial encounter; Y92.9 Unspecified place or not applicable
CPT/HCPCS: 72192; 99212; G0463

== ENCOUNTER 2019-08-29 09:09 | Emergency (ER) | payer MEDICARE ==
[2019-08-29 10:33] VITALS: BP 108/45
--- NOTE | 2019-08-29 10:54 | ED ---
Throat Pain/Nasal Congestion - HPI Summary HPI Summary: 74 yr old female with the complaint of sore throat, onset seven days ago, followed by runny nose, post nasal drip, and now a cough productive of yellow sputum. She has pain to the left anterior to ear as well over the past couple of days. She denies CP, SOB. No other complaints. - History of Current Complaint Chief Complaint: UCGeneralIllness Time Seen by Provider: 08/29/19 10:40 - Allergies/Home Medications Allergies/Adverse Reactions: Allergies Allergy/AdvReac Type Severity Reaction Status Date / Time levetiracetam [From [facility]] AdvReac See Comment Verified 08/29/19 10:33 ADHESIVE BANDAIDS Allergy Intermediate Rash Uncoded 08/29/19 10:33 PMH/Surg Hx/FS Hx/Imm Hx Endocrine/Hematology History: Denies: Hx Diabetes Cardiovascular History: Reports: Hx Hypertension Respiratory History: Reports: Hx Chronic Obstructive Pulmonary Disease (COPD) - Emphysema History: Denies: Hx Renal Disease - Cancer History Cancer Type, Location and Year: Basal Cell - Surgical History Surgery Procedure, Year, and Place: [place] Tumor Humangioma, 2009. LEFT BREAST BX- NOV 26, 2016. NERVE BLOCK BACK PAIN. Spine surgery in 03/2019 Infectious Disease History: No Infectious Disease History: Denies: Hx Clostridium Difficile, Hx Hepatitis, Hx Human Immunodeficiency Virus (HIV), Hx of Known/Suspected MRSA, Hx Shingles, Hx Tuberculosis, Hx Known/ Suspected VRE, Hx Known/Suspected VRSA, History Other Infectious Disease, Traveled Outside the [place] in Last 30 Days - Family History Known Family History: Positive: Hypertension Negative: Cardiac Disease, Diabetes - Social History Occupation: Retired Alcohol Use: None Substance Use Type: Reports: None Smoking Status (MU): Heavy Every Day Tobacco Smoker Type: Cigarettes Amount Used/How Often: 1/2 PPD Length of Time of Smoking/Using Tobacco: 56 Years Have You Smoked in the Last Year: Yes Review of Systems Constitutional: Negative Positive: Sore Throat, Ear Ache, Nasal Discharge Positive: Cough All Other Systems Reviewed And Are Negative: Yes Physical Exam Triage Information Reviewed: Yes Vital Signs On Initial Exam: Initial Vitals Temp Pulse Resp BP Pulse Ox 97.6 F 82 16 108/45 97 08/29/19 10:28 08/29/19 10:28 08/29/19 10:28 08/29/19 10:28 08/29/19 10:28 Vital Signs Reviewed: Yes Appearance: Positive: Well-Appearing, No Pain Distress Skin: Positive: Warm, Skin Color Reflects Adequate Perfusion Head/Face: Positive: Normal Head/Face Inspection Eyes: Positive: EOMI ENT: Positive: Normal ENT inspection, Nasal congestion, Nasal drainage, TM red - left, Sinus tenderness Neck: Positive: Nontender Respiratory/Lung Sounds: Positive: Clear to Auscultation, Breath Sounds Present Cardiovascular: Positive: RRR. Negative: Murmur Abdomen Description: Negative: Distended Musculoskeletal: Positive: Strength/ROM Intact Neurological: Positive: Sensory/Motor Intact, Alert, Oriented to Person Place, Time, CN Intact II-III Psychiatric: Positive: Normal Diagnostics - Vital Signs Vital Signs Temp Pulse Resp BP Pulse Ox 08/29/19 10:28 97.6 F 82 16 108/45 97 - Laboratory Lab Statement: Any lab studies that have been ordered have been reviewed, and results considered in the medical decision making process. EENT Course/Dx - Course Course Of Treatment: 74 yr old with left Otitis Media, and sinusitis. DC home on Augmentin. - Diagnoses Provider Diagnoses: Left otitis media, Sinusitis Discharge ED - Sign-Out/Discharge Documenting (check all that apply): Patient Departure All imaging exams completed and their final reports reviewed: No Studies - Discharge Plan Condition: Good Disposition: HOME Prescriptions: Amoxicillin/Clavulanate TAB* [Augmentin TAB 875*] 875 mg PO BID #20 tab Patient Education Materials: Ear Infection (ED), Sinusitis (ED) Referrals: Ganesh Choi DO [Primary Care Provider] - 3 Days - Billing Disposition and Condition Condition: GOOD Disposition: Home
== END 2019-08-29 10:53 | disposition home or self-care (01) ==
LOC: UCCORT 09:09
DX: J32.9 Chronic sinusitis, unspecified (principal); H66.92 Otitis media, unspecified, left ear; I10 Essential (primary) hypertension; J43.9 Emphysema, unspecified; F17.210 Nicotine dependence, cigarettes, uncomplicated; Z91.09 Other allergy status, other than to drugs and biological substances; Z88.8 Allergy status to other drugs, medicaments and biological substances
CPT/HCPCS: 99212; G0463